=== PATIENT | male | born 1960 | race African-American/Black ===

== ENCOUNTER 2019-04-02 16:50 | Emergency (ER) | payer OTHER ==
[~2019-04-02] VITALS: Ht 188 cm; Wt 114.8 kg
[2019-04-02 16:54] VITALS: Ht 188 cm; Wt 114.8 kg
[2019-04-02 17:20] LABS: BASOPHIL % 0.5 % (0-2); PLATELET COUNT 305 x10^3mcL (130-400); RED CELL DISTRIBUTION WIDTH 14.2 % (11.5-14.5)
[2019-04-02 17:33] LABS: CALCIUM 9.3 mg/dL (8.5-10.1); CARBON DIOXIDE 22.1 mmol/L (21-32); CREATININE SERUM 1.7 mg/dL (0.7-1.3); POTASSIUM SERUM 3.3 mmol/L (3.5-5.1)
[2019-04-02 17:37] LABS: ALBUMIN 3.7 g/dL (3.4-5.0); BILIRUBIN TOTAL 0.45 mg/dL (0.20-1.00); TOTAL PROTEIN, SERUM 7.9 g/dL (6.4-8.2)
[2019-04-02 17:56] LABS: AMYLASE 65 U/L (25-115); CALCIUM 9.2 mg/dL (8.5-10.1); LIPASE 120 IU/L (73-393); MAGNESIUM 1.9 mg/dL (1.8-2.4); T4(THYROXINE) 8.3 ug/dL (4.7-13.3)
[2019-04-02 18:01] LABS: CHOLESTEROL 217 mg/dL (<200); HDL CHOLESTEROL 31 mg/dL (40-60)
[2019-04-02 18:30] LABS: microscopic required? NO
[2019-04-02 18:38] LABS: UA SPECIFIC GRAVITY 1.015 (1.005-1.035); urine erythrocyte NEGATIVE (NEGATIVE)
[2019-04-02 18:47] LABS: AMPHETAMINE QUAL UR NONE DETECTED (See below)
[2019-04-02 18:54] VITALS: BP 132/96
== END 2019-04-02 19:32 | disposition left against medical advice (07) ==
LOC: ED 16:50
PROVIDERS: Emergency Medicine
DX: I24.9 Acute ischemic heart disease, unspecified (principal); I10 Essential (primary) hypertension; R42 Dizziness and giddiness; E87.6 Hypokalemia; I12.9 Hypertensive chronic kidney disease with stage 1 through stage 4 chronic kidney disease, or unspecified chronic kidney disease; N18.3 Chronic kidney disease, stage 3 (moderate)
CPT/HCPCS: 36415; 82962; 83880; 85378; G0480; J1940